=== PATIENT | female | born 1960 | race Caucasian/White ===

== ENCOUNTER → 2018-04-06 | Outpatient (CLI) | payer BC ==
[~2018-04-06] VITALS: Ht 167.6 cm; Wt 97.5 kg
[~2018-04-06] MED LIST: ASPIR 8181 MG PO; CRESTOR10 MG PO; DUONEB 2.5-0.5 M3 ML INH; FISH OIL 1,001000 M2 PO; HYDROCODONE-AP1 EAC6 PO; IMDUR 30 MG TAB30 M1 PO; KLOR-CON 1010 MEQ PO; LEXAPRO 10 MG T10 M1 PO; MOBIC7.5 MG PO; PROVENTIL HFA6.7 G1 INH; SYMBICORT160 MCG/4. INH; TUMS PO
--- NOTE | ~2018-04-06 | EKG ---
[address] [address] ELECTROCARDIOGRAM REPORT Name: DEEPA DANGELO Room #: REG [facility]#: [id number] Admission: 04/06/18 Attend Phys: Lenny Siegel Discharge: Date of : 62 Report #: [id number] THIS REPORT FOR: //name// [facility] Test Date: 2018-04-06 Test Time: 10:26:00 Pat Name: DEEPA DANGELO Department: Room: Gender: F Pre Coder: Jazmin SALAZAR : 1960 Requested By: Lenny Siegel Order Number: [id number] MD: Paul Madden Measurements Intervals [place] Rate: 79 P: 70 LA: 191 QRS: -43 QRSD: 88 T: 46 QT: 385 QTc: 442 Interpretive Statements Sinus rhythm Inferior infarct, old No previous ECG available for comparison Electronically Signed On 04-06-2018 16:56:44 CDT by Paul Madden [email or web address] <ELECTRONICALLY SIGNED> By: Paul Madden MD 04/06/18 1656 1026 25 Paul Madden MD /KRISTIE
--- NOTE | ~2018-04-06 | CATHLAB ---
[facility] [address] [place] [address] INVASIVE PROCEDURE REPORT Name: DEEPA DANGELO Room #: REG [facility]#: [id number] Admission: 04/06/18 Attend Phys: Lenny Cody Discharge: Date of : 62 Date of Service: 04/06/18 1549 Report #: [id number] THIS REPORT FOR: //name// APPROVED REPORT Study performed: 04/06/2018 10:55:21 Patient Details Patient Status: Out-Patient Room #: The patient is a 58 year-old female Event Personnel Lenny Siegel Horizontal Boring Mill Operator, Genaro Hoffman RN RN, Marta Gonzalez Sandifer, David Monitor Procedures Performed Left Heart Cath w/or w/o Coronaries [id number] [facility] supervision of conscious sedation Indication Abnormal ECG, Positive stress test Procedure Narrative The Right Groin^ was infiltrated with 1% Lidocaine subcutaneous anesthesia. A PINNACLE 4FR Sheath #[id number] sheath was inserted into the RFA^. Coronary angiography was performed using coronary diagnostic catheters. The right coronary system was accessed and visualized with a JR4 catheter. The left coronary system was accessed and visualized with a JL4 catheter. The left ventricle was accessed and visualized with a PIGTAIL catheter. Left ventricular/Aortic Valve gradient assessed via catheter pullback. Hemostasis was obtained with manual pressure following sheath removal without any complications. There was no hematoma. Intraoperative Conscious Sedation Sedation start time: 11.40 Case end Time: 11.52 Versed 1 mg Fluoro Time: 1.58 minutes Dose: DAP 3503 cGycm2 451 mGy Contrast Type and Amount: Omnipaque 60 ml Coronary Angiography The patient's coronary anatomy is right dominant. [facility] [place] [address] INVASIVE PROCEDURE REPORT Name: DEEPA DANGELO Room #: [facility]#: [id number] Admission: 04/06/18 Attend Phys: Lenny Cody Discharge: Date of : 62 Date of Service: 04/06/18 1549 Report #: [id number] Diagnostic Cath Left Main Large-caliber vessel of normal origin bifurcates her continue the same and circumflex history of high-grade disease LAD Monitor large-caliber vessel2's rise to a moderate caliber first diagonal branch free of high-grade disease. He denies to septal inker machine and beyond this is a region of irregularity of approximately 30-40%. Then reconstitutes and continues in the anterior interventricular sulcus free of high-grade stenosis. Terminates small-caliber vessel at the apex Diagonal 1 Moderate caliber bifurcating vessel coursing along the anterolateral wall free of high-grade disease Circumflex Large-caliber vessel gives rise to first marginal branch which is short in length a moderate diameter without significant stenotic lesions. The on this there is a region of eccentric narrowing of less than 50% which does not appear to be flow-limiting. Review in different views E fails that he generate any significant high-grade lesion in courses posteriorly terminating and posterior lateral wall. The terminal circumflex is a small caliber vessel in the AV groove posteriorly OM1 Small-caliber vessel free of high-grade disease OM2 Moderate caliber terminal portion of the circumflex as described above Right Coronary Large-caliber vessel which has approximately 40-50% eccentric lesion proximally. This has calcifications noted on fluoroscopy. It is a small region that appears to be a linear region of calcification. No evidence of thrombus is seen. The RCA continues posteriorly giving rise to 2 small caliber RV marginal branches. The crux of the heart a moderate caliber posterior descending artery extending to the apex is present in a posterior wall branches also has some septal perforators extends towards the apex and then terminating as a small trifurcating vessel including vessel artery to the AV node. Free of high-grade disease in this region. R PDA Moderate caliber vessel coursing in the posterior interventricular sulcus with the apex. High-grade disease Left Ventriculography Left Ventriculography was not performed. Hemodynamics The aortic pressure is 132/71 mmHg with a mean of 87 mmHg. The left ventricular pressure is 120/12 mmHg with a mean of mmHg. The left ventricular end diastolic pressure is 19 mmHg. [facility] [address] [place] [address] INVASIVE PROCEDURE REPORT Name: DEEPA DANGELO Room #: REG [facility]#: [id number] Admission: 04/06/18 Attend Phys: Lenny Cody Discharge: Date of : 62 Date of Service: 04/06/18 1549 Report #: [id number] Conclusion 1. Coronary disease two-vessel nonobstructive with less than 50% narrowing as described above 2. Normal hemodynamics Recommendations Smoking Cessation Cardiac Risk Reduction Program <ELECTRONICALLY SIGNED> By: Lenny Siegel MD 04/06/18 1549 1549 1549 Lenny Siegel MD /INF
[2018-04-06 10:06] VITALS: BP 102/59
== END | disposition home or self-care (01) ==
LOC: CATH 09:21
DX: I25.10 Atherosclerotic heart disease of native coronary artery without angina pectoris (principal); J44.9 Chronic obstructive pulmonary disease, unspecified; E78.5 Hyperlipidemia, unspecified; F17.210 Nicotine dependence, cigarettes, uncomplicated; E66.09 Other obesity due to excess calories; Z90.49 Acquired absence of other specified parts of digestive tract; Z98.890 Other specified postprocedural states; Z82.49 Family history of ischemic heart disease and other diseases of the circulatory system; Z79.899 Other long term (current) drug therapy; Z79.82 Long term (current) use of aspirin; Z79.891 Long term (current) use of opiate analgesic